=== PATIENT | female | born 1995 | race Caucasian/White ===

== ENCOUNTER 2017-11-10 07:21 | Emergency (ER) | payer MEDICAID, OTHER ==
[2017-11-10] MEDS ORDERED: ONDANSETRON 4 MG/2 ML VIAL IVP ONE (07:51)
[2017-11-10] MEDS ORDERED: NS 1,000 ML IV ONE (07:53)
--- NOTE | 2017-11-10 07:53 | EDPHY ---
H & P Stated Complaint: RLQ to R flank pain x 1 wk;seen @ yesterday "nothing done" Time Seen by Provider: 11/10/17 07:51 HPI/ROS: HPI: This is a 21-year-old female who presents with Chief Complaint: RLQ to R flank pain x 1 wk;seen @ yesterday "nothing done" Location: Right lower quadrant; right flank Quality: Pain Duration: 1 week Signs and Symptoms: no fever, + nausea, no vomiting, no hematemesis, no blood in stool, no abdominal bloating, no diarrhea, no back pain, no urinary symptoms , no vaginal bleeding/discharge, no indigestion, no chest pain, no shortness of breath Timing: Worsening Severity: Moderate Context: Patient reports that she has a history of appendectomy presents with complaints of right lower quadrant and right flank pain x1 week. Describes the pain as [id number] in nature. Worsened with certain movements. Reports that she has not done yoga or exercised in over a week. Denies burning with urination/urinary frequency/hematuria. No history of kidney stones. Patient had her menses this week. Reports that the pain started prior to her menses. No history of ovarian cyst/fibroid uterus. Patient has not seen an OBGYN nor had a pelvic exam in 5 years. Denies any vaginal bleeding/discharge. No concern for STDs. Nausea started this morning. No episodes of vomiting. Denies fever/diarrhea. Has no recent antibiotic use. No foreign travel. After further prompting, patient reports that over the last week she has had some right-sided neck pain as well as lower back pain; aching in nature; nonradiating; mild in severity. Modifying Factors: None Comment: ROS: see HPI Constitutional: No fever, no chills, no weight loss Eyes: No blurred vision Respiratory: No shortness of breath, no cough Cardiovascular: No chest pain, no palpitations Gastrointestinal: + nausea, no vomiting, no diarrhea, no hematemesis, no blood in stool Genitourinary: No dysuria, no blood in urine Extremities: No myalgias, no edema Neurologic: No weakness, no numbness Skin: No rashes, no petechiae Hematologic: No bruising, no bleeding MEDICAL/SURGICAL/SOCIAL HISTORY: Medical history: Generally healthy. Does not take any regular medications. 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 Family history noncontributory. CONSTITUTIONAL: Extremely well-appearing young adult white female, awake and alert, no obvious distress HEENT: Atraumatic and normocephalic, PERRL, EOMI. Nares patent; no rhinorrhea; no nasal mucosal edema. Tympanic membranes clear. Oropharynx clear, no exudate and moist pink mucosa. Airway patent. No lymphadenopathy. No meningismus. Cardiovascular: Normal S1/S2, regular rate, regular rhythm, without murmur rub or gallop. PULMONARY/CHEST: Symmetrical and nontender. Clear to auscultation bilaterally. Good air movement. No accessory muscle usage. ABDOMEN: Soft, nondistended, remote laparoscopic portal incisions from prior appendectomy noted; right flank and right moderate lower quadrant tenderness; bowel sounds heard x4, no rebound, no guarding, no peritoneal signs, no masses or organomegaly. No CVAT. EXTREMITIES: 2/2 pulses, strength 5/5, no deformities, no clubbing, no cyanosis or edema. NEUROLOGICAL: no focal neuro deficits. GCS 15. SKIN: Warm and dry, no erythema. no rash. Good capillary refill. Source: Patient Exam Limitations: No limitations - Personal History LMP (Females 10-55): 1-7 Days Ago Current Tetanus Diphtheria and Acellular Pertussis (TDAP): Yes - Medical/Surgical History Hx Asthma: No Hx Chronic Respiratory Disease: No Hx Diabetes: No Hx Cardiac Disease: No Hx Renal Disease: No Hx Cirrhosis: No Hx Alcoholism: No Hx HIV/AIDS: No Hx Splenectomy or Spleen Trauma: No Other PMH: adnoids removed at age 6. appy December 2014. - Social History Smoking Status: Never smoked Constitutional: Initial Vital Signs Temperature (C) 37.1 C 11/10/17 07:22 Heart Rate 90 11/10/17 07:22 Respiratory Rate 16 11/10/17 07:22 Blood Pressure 108/73 11/10/17 07:22 O2 Sat (%) 98 11/10/17 07:22 O2 Delivery Mode Room Air Allergies/Adverse Reactions: Penicillins Allergy (Intermediate, Verified 11/10/17 07:22) Hives Home Medications: Medication Instructions Recorded Ondansetron Odt [Zofran Odt 4 mg 4 mg PO Q4 PRN #12 tab 11/10/17 (*)] Medical Decision Making - Diagnostics Imaging Results: Imaging Impressions Abdomen CT 11/10/17 08:06 Impression: 1. Mild dilatation of jejunum in the left midabdomen could reflect enteritis with mechanical obstruction considered a less likely differential possibility. 2. See above report for additional findings. Results called and discussed with Liana Wilkins PA-C on November 10, 2017 at 9:03 a.m. ED Course/Re-evaluation: Labs, urinalysis, IV fluids, IV medications, CT abdomen and pelvis scan Patient is extremely disappointed that laboratory studies and imaging of her abdomen and pelvis were not performed yesterday at Urgent Care. Given 1 L normal saline, IV Zofran 0811: Labs reviewed. No signs of leukocytosis/anemia/ALFA/elevated LFTs/ electrolyte imbalance//mono Urinalysis shows no signs of infection; no hematuria 0900: Called by radiologist who advised that CT abdomen and pelvis scan shows small bowel dilatation that is consistent and the CT scan in 2014. Etiology appears to be gastroenteritis related. No signs of obstruction/colitis/ diverticulitis/pancreatitis. 0910: Reassessed patient. Abdomen soft and nontender. Passed p.o. Trial. Advised supportive care. Work note provided per patient request. This patient was seen under the supervision of my secondary supervising physician. I evaluated care for this patient independently. Discussed this patient with Dr. Barnett who did not see the patient. Differential Diagnosis: Abdominal pain in a female including but not limited to ovarian cyst, pelvic inflammatory disease, ovarian torsion, urinary tract infection, and appendicitis. - Data Points Laboratory Results: Laboratory Results 11/10/17 07:45 11/10/17 07:45 11/10/17 11/10/17 11/10/17 07:45 07:45 07:45 WBC RBC Hgb Hct MCV MCH MCHC RDW Plt Count MPV Neut % (Auto) Lymph % (Auto) Morrison % (Auto) Eos % (Auto) Baso % (Auto) Nucleat RBC Rel Count Absolute Neuts (auto) Absolute Lymphs (auto) Absolute Monos (auto) Absolute Eos (auto) Absolute Basos (auto) Absolute Nucleated RBC Immature Gran % Immature Gran # Sodium 142 mEq/L mEq/L (135-145) Potassium 4.7 mEq/L mEq/L (3.5-5.2) Chloride 106 mEq/L mEq/L (97-110) Carbon Dioxide 23 mEq/l mEq/l (22-31) Anion Gap 13 mEq/L mEq/L (8-16) BUN 12 mg/dL mg/dL (7-23) Creatinine 0.7 mg/dL mg/dL (0.6-1.0) Estimated GFR > 60 Glucose 88 mg/dL mg/dL (70-100) Calcium 9.0 mg/dL mg/dL (8.5-10.4) Total Bilirubin 0.6 mg/dL mg/dL (0.1-1.4) Conjugated Bilirubin 0.4 mg/dL mg/dL (0.0-0.5) Unconjugated Bilirubin 0.2 mg/dL mg/dL (0.0-1.1) AST 29 IU/L IU/L (14-46) ALT 40 IU/L IU/L (9-52) Alkaline Phosphatase 101 IU/L IU/L (38-126) Total Protein 8.0 g/dL g/dL (6.3-8.2) Albumin 4.6 g/dL g/dL (3.5-5.0) Lipase 44 IU/L IU/L (23-300) Beta HCG, Qual NEGATIVE Urine Color Urine Appearance Urine pH Ur Specific [place] Urine Protein Urine Ketones Urine Blood Urine Nitrate Urine Bilirubin Urine Urobilinogen Ur Leukocyte Esterase Urine Glucose Monoscreen NEGATIVE (NEGATIVE) 11/10/17 11/10/17 07:45 07:30 WBC 5.85 10^3/uL 10^3/uL (3.80-9.50) RBC 5.30 10^6/uL 10^6/uL (4.18-5.33) Hgb 15.4 g/dL g/dL (12.6-16.3) Hct 45.9 % % (38.0-47.0) MCV 86.6 fL fL (81.5-99.8) MCH 29.1 pg pg (27.9-34.1) MCHC 33.6 g/dL g/dL (32.4-36.7) RDW 12.5 % % (11.5-15.2) Plt Count 203 10^3/uL 10^3/uL (150-400) MPV 10.2 fL fL (8.7-11.7) Neut % (Auto) 52.1 % % (39.3-74.2) Lymph % (Auto) 36.6 % % (15.0-45.0) Morrison % (Auto) 9.4 % % (4.5-13.0) Eos % (Auto) 0.5 % L % (0.6-7.6) Baso % (Auto) 1.2 % % (0.3-1.7) Nucleat RBC Rel Count 0.0 % % (0.0-0.2) Absolute Neuts (auto) 3.05 10^3/uL 10^3/uL (1.70-6.50) Absolute Lymphs (auto) 2.14 10^3/uL 10^3/uL (1.00-3.00) Absolute Monos (auto) 0.55 10^3/uL 10^3/uL (0.30-0.80) Absolute Eos (auto) 0.03 10^3/uL 10^3/uL (0.03-0.40) Absolute Basos (auto) 0.07 10^3/uL 10^3/uL (0.02-0.10) Absolute Nucleated RBC 0.00 10^3/uL 10^3/uL (0-0.01) Immature Gran % 0.2 % % (0.0-1.1) Immature Gran # 0.01 10^3/uL 10^3/uL (0.00-0.10) Sodium Potassium Chloride Carbon Dioxide Anion Gap BUN Creatinine Estimated GFR Glucose Calcium Total Bilirubin Conjugated Bilirubin Unconjugated Bilirubin AST ALT Alkaline Phosphatase Total Protein Albumin Lipase Beta HCG, Qual Urine Color YELLOW Urine Appearance CLEAR Urine pH 5.0 (5.0-7.5) Ur Specific [place] 1.021 (1.002-1.030) Urine Protein NEGATIVE (NEGATIVE) Urine Ketones TRACE H (NEGATIVE) Urine Blood NEGATIVE (NEGATIVE) Urine Nitrate NEGATIVE (NEGATIVE) Urine Bilirubin NEGATIVE (NEGATIVE) Urine Urobilinogen NEGATIVE EU EU (0.2-1.0) Ur Leukocyte Esterase NEGATIVE (NEGATIVE) Urine Glucose NEGATIVE (NEGATIVE) Monoscreen Medications Given: Discontinued Medications Sodium Chloride (Ns) 1,000 mls @ 0 mls/hr IV ONCE ONE PRN Reason: Wide Open Stop: 11/10/17 07:54 Last Admin: 11/10/17 07:56 Dose: 1,000 mls Ondansetron HCl (Zofran) 4 mg IVP EDNOW ONE Stop: 11/10/17 07:52 Last Admin: 11/10/17 07:56 Dose: 4 mg Departure - Departure Disposition: Home, Routine, Self-Care Clinical Impression: Gastroenteritis Condition: Good Instructions: Gastroenteritis (ED) Additional Instructions: Consume a minimum of 8-10 glasses of water or electrolyte fluid replacement drinks that include Gatorade, Powerade, Pedialyte. Eat a bland diet for the next 48 hours and then slowly advance as tolerated. Take Zofran 1 tab every 4 hours as needed for nausea, vomiting. Establish care with OBGYN and follow up within the next month for a Pap smear and pelvic exam. Return to the ER immediately if you experience new, continued or worsening abdominal pain, fevers/chills, inability to tolerate oral intake, new pain, or any other symptoms that concern you. Referrals: [facility],. [Clinic] - As per Instructions Monse Gutierrez MD [Medical Doctor] - As per Instructions Stand Alone Forms: Work Excuse Prescriptions: Ondansetron Odt [Zofran Odt 4 mg (*)] 4 mg PO Q4 PRN #12 tab PRN Reason: Nausea/Vomiting, Use 1st
[2017-11-10 07:59] LABS: PLATELET COUNT 203 10^3/uL (150-400)
[2017-11-10] MEDS ORDERED: NS 1,000 ML IV SCH (08:00)
[2017-11-10] MEDS ORDERED: IOPAMIDOL (ISOVUE-300) 100 ML BTL ONE (08:19)
[2017-11-10 09:08] VITALS: BP 110/64
== END 2017-11-10 09:11 | disposition home or self-care (01) ==
DX: K52.9 Noninfective gastroenteritis and colitis, unspecified (principal)
CPT/HCPCS: 96374; J2405; Q9967